=== PATIENT | female | born 1980 | race Caucasian/White ===

== ENCOUNTER 2018-03-06 15:08 | Outpatient (REF) | payer BC, SELFPAY ==
--- NOTE | 2018-03-06 15:00 | PAPFT_PTH ---
PATIENT: Mague Anthony LOC: [facility] U#:[id number] AGE/SX: 37/F ROOM: RE03/06/[address]: SANTOS Brooke : 1980 BED: DIS: 03/06/2018 SPEC #: [id number] RECD: 03/06/18 18:03 STATUS: LANG CARDOZA #: [id number] SHEILA: 03/06/18 15:[address]: Nikole Sheikh DEPT: [facility] Cytology RECD BY: Gladis Maria ENTERED: 03/06/18 18:03 SP TYPE: PAPFT BIJAN DR: None Tissues: 1 - CX/ENDOCX FOR PAP SMEARS Procedures: PAP THIN PREP/UVM Screening HPV DNA PROBE Comments: [id number]
== END 2018-03-06 15:28 ==
LOC: LBN 15:08
PROVIDERS: Visit Provider Nurse Practitioner Family
DX: Z12.4 Encounter for screening for malignant neoplasm of cervix (principal); Z11.51 Encounter for screening for human papillomavirus (HPV)
CPT/HCPCS: 88142; 87624

== ENCOUNTER 2018-03-14 00:41 | Outpatient (CLI) | payer BC, SELFPAY ==
--- NOTE | 2018-03-14 12:00 | DI.MAMMO_ITS ---
SYMPTOMS/DIAGNOSIS: SCREENING, Z12.31 MAMMOGRAM: Mammograms were interpreted according to the usual protocol including computer analysis with CAD system, tomosynthesis and C view imaging. The breasts are of moderate density with fairly symmetrical distribution of fibroglandular tissue. No dominant mass or clumped microcalcification is identified in either breast. Current examination is compared with the previous examinations including March 2016 and there is increased prominence of a focal area of asymmetric density projected in the central portion of the right breast on CC view. Additional mammographic views of this area are requested for further evaluation including CC spot compression view of the right breast. CONCLUSION: Additional mammographic views of the right breast requested as described above. Breast ultrasound may be indicated as well depending on the results of the additional mammographic views. Category 0, breast density category B. MQSA ASSESSMENT OF FINDINGS: Incomplete: Needs additional imaging evaluation. Category 0. Patient will receive a letter notifying them of these results. BI-RADS category B. There are scattered areas of fibroglandular density.
== END 2018-03-14 01:01 ==
PROVIDERS: Visit Provider Nurse Practitioner Family
DX: Z12.31 Encounter for screening mammogram for malignant neoplasm of breast (principal); R92.8 Other abnormal and inconclusive findings on diagnostic imaging of breast
CPT/HCPCS: 77063; 77067

== ENCOUNTER 2018-03-26 13:28 | Outpatient (CLI) | payer BC, SELFPAY ==
--- NOTE | 2018-03-26 14:33 | DI.MAMMO_ITS ---
SYMPTOMS/DIAGNOSIS: F/U 03/14, ASYMMETRIC DENSITY ON RT ADDITIONAL VIEWS OF THE RIGHT BREAST: Additional images are interpreted according to the usual protocol including tomosynthesis and 2D imaging. CC spot compression views with tomography was performed for a questioned asymmetry on the CC view. No persistent abnormality is seen. There has been no change when compared with 2016. IMPRESSION: Category I, negative mammogram. Yearly screening mammography is recommended. Breast density Category B. MQSA ASSESSMENT OF FINDINGS: Negative. Category 1. Patient will receive a letter notifying them of these results. BI-RADS category B. There are scattered areas of fibroglandular density.
== END 2018-03-26 13:48 ==
PROVIDERS: Visit Provider Nurse Practitioner Family
DX: Z12.31 Encounter for screening mammogram for malignant neoplasm of breast (principal); R92.8 Other abnormal and inconclusive findings on diagnostic imaging of breast; N64.59 Other signs and symptoms in breast
CPT/HCPCS: 77063; 77067

== ENCOUNTER 2020-08-07 10:06 | Outpatient (REF) | payer BC, SELFPAY ==
--- NOTE | 2020-08-07 09:00 | PAPFT_PTH ---
PATIENT: Mague Anthony LOC: [facility] U#:[id number] AGE/SX: 40/F ROOM: RE08/07/[address]: SANTOS Brooke : 1980 BED: DIS: 08/07/2020 SPEC #: [id number] RECD: 08/07/20 12:54 STATUS: LANG REQ #: [id number] SHEILA: 08/07/20 09:[address]: Nikole Sheikh DEPT: [facility] Cytology RECD BY: Gladis Maria ENTERED: 08/07/20 12:54 SP TYPE: PAPFT BIJAN DR: None Tissues: 1 - CX/ENDOCX FOR PAP SMEARS Procedures: PAP THIN PREP/UVM Screening HPV DNA PROBE Comments: [id number]
== END 2020-08-07 10:07 | disposition home or self-care (01) ==
LOC: LBN 10:06
PROVIDERS: Visit Provider Nurse Practitioner Family
DX: Z12.4 Encounter for screening for malignant neoplasm of cervix (principal); Z11.51 Encounter for screening for human papillomavirus (HPV)
CPT/HCPCS: 88142; 87624

== ENCOUNTER 2020-08-13 01:45 | Outpatient (CLI) | payer BC, SELFPAY ==
--- NOTE | 2020-08-13 10:10 | DI.MAMMO_ITS ---
EXAM: MG MAMMO SCREENING CLINICAL HISTORY: screening,Z12.39. TECHNIQUE: Bilateral full field digital CC and MLO mammographic images were obtained with 3D tomosyn thesis and utilizing computer aided detection (CAD). COMPARISON: Prior mammograms dating back to 2015, the most recent being March 2018. This patient has a sister was diagnosed with breast cancer prior to age 50. FINDINGS: There are no new spiculated masses nor malignant appearing microcalcification groups. There is no significant architectural distortion nor skin thickening-retraction. IMPRESSION: No radiographic evidence of malignancy. BI-RADS Category 1 - Negative Breast Density - Category B - Scattered areas of fibroglandular density Breast density Category C or D implies that the patient has dense breast tissue. Dense breast tissue can make it harder to find cancer on a mammogram. Dense breast tissue is also associated with an incr eased risk of breast cancer. This information about the result of the mammogram report was provided to the patient to raise their awareness. Use this report when you speak with the patient about their risks for breast cancer, which includes their family history. At that time, you may recommend additional screening tests (Ultrasoun d or MRI) as these tests may add significant information. A negative radiographic report should not delay biopsy if a dominant or clinically suspicious mass is present. Up to ten percent of cancers are not identified on mammography. A negative report may reinforce clinical impression. Adenosis and dense breasts may obscure an underlying neoplasm. False positive reports average 6 to 10%. Patient will receive a letter notifying them of these results.
== END 2020-08-13 02:05 ==
PROVIDERS: Visit Provider Nurse Practitioner Family
DX: Z12.31 Encounter for screening mammogram for malignant neoplasm of breast (principal); Z80.3 Family history of malignant neoplasm of breast
CPT/HCPCS: 77063; 77067

== ENCOUNTER 2020-08-13 03:07 | Outpatient (CLI) | payer BC, SELFPAY ==
[2020-08-13 11:06] LABS: ALT 26 U/L (14-59); AST 13 U/L (15-37)
== END 2020-08-13 03:08 | disposition home or self-care (01) ==
LOC: LBO 03:07
PROVIDERS: Visit Provider Nurse Practitioner Family
DX: E28.2 Polycystic ovarian syndrome (principal)
CPT/HCPCS: 36415; 82565; 84450; 84460

== ENCOUNTER → 2021-11-05 00:49 | Outpatient (CLI) | payer BC, SELFPAY ==
--- NOTE | 2021-11-05 08:00 | DI.MAMMO_ITS ---
Exam(s) MAMMO SCREENING EXAM: MAMMO SCREENING CLINICAL HISTORY: screening TECHNIQUE: Mammograms were interpreted according to the usual protocol including computer analysis w [employer] CAD system, tomosynthesis and C-view imaging. COMPARISON: 2015 through 2020 FINDINGS: The breasts are composed of scattered fibroglandular densities, Breast Density category B. Left breast: No suspicious masses or suspicious microcalcifications are seen. No skin thickening or abnormal axillary lymph nodes are seen. There has been no significant change from prior exams. Right breast: There is a area architectural distortion with some increased density seen in the superi or right breast. Spot compression views and ultrasound are requested for further evaluation. No ass ociated calcifications or skin thickening. No abnormal axillary lymph nodes. IMPRESSION: Left breast: BI-RADS Category 1, Negative mammogram Yearly screening mammography is recommended. Right breast: BI-RADS Cat 0 - Assessment Incomplete: Need additional imaging evaluation Breast Density - Category B, scattered fibroglandular densities. A negative radiographic report should not delay biopsy if a dominant or clinically suspicious mass is present. Up to ten percent of cancers are not identified on mammography. A negative report may reinforce clinical impression. Adenosis and dense breasts may obscure an underlying neoplasm. False positive reports average 6 to 10%. Patient will receive a letter notifying them of these results.
== END ==
PROVIDERS: Visit Provider Nurse Practitioner Family
DX: Z12.31 Encounter for screening mammogram for malignant neoplasm of breast (principal); R92.8 Other abnormal and inconclusive findings on diagnostic imaging of breast
CPT/HCPCS: 77063; 77067

== ENCOUNTER 2021-11-05 02:21 | Outpatient (CLI) | payer BC, SELFPAY ==
--- OUTSIDE RECORDS SUMMARY | 2021-11-05 02:31 | XMS_ITS | Encounter Summary ---
:1980 Author Organization [facility] Address [address] [place] [address] Care Team Providers Name Role Phone Cheryl Chacon MD Primary Care Provider Encounter Details Date Type Department Care Team Description 04/15/2016 Hospital Encounter Mammography at [facility] Cheryl Chacon Encounter for [facility] MD [place] screening mammogram Drive [address] for malignant [facility] neoplasm [place] [facility] [place] [address] [place], [place] [phone] [id number] Social History Tobacco Use Types Packs/Day Years Used Date Never Assessed Sex Assigned at Date Recorded Not on file documented as of this encounter Medications at Time of Discharge Medication Sig Dispensed Refills Start Date End Date OXYcodone-acetaminophen 1-2 Tablet(s), PO, 0 / (PERCOCET) 5-325 mg per Q4-6H,PRN tablet ibuprofen (ADVIL;MOTRIN) 600 600MG = 1 0 007 mg tablet Tablet(s), PO, Q6H,PRN norethindrone (MICRONOR) 0.35MG = 1 0 07/08/2006 0.35 mg tablet Tablet(s), PO, Once daily documented as of this encounter Plan of Treatment Not on filedocumented as of this encounter Procedures Procedure Name Priority Date/Time Associated Diagnosis Comme nts MAMMO SCREENING CAD Routine 04/15/2016 10:06 AM Encounter for Results for this AND BRENT BILATERAL EST screening mammogram pr ocedure are in for malignant the results neoplasm of breast section. documented in this encounter Results Mammo Screen CAD and Brent Bilat (Generic) (04/15/2016 10:06 AM EST) Anatomical Region Laterality Modality Breast Bilateral Mammography Specimen (Source) Anatomical Location Collection Method / Collectio n Time Received Time / Laterality Volume Narrative 04/15/2016 10:40 AM EST BILATERAL MAMMOGRAPHY REASON FOR EXAM: Screening TECHNIQUE: CC and MLO views were obtaine d of each breast using standard 2-D mammography as well as 3-D tomosynth esis. Computer aided detection was used. There are no prior images for jean almeida. FINDINGS: ??The breasts are heterogeneou sly dense, which may obscure small masses. There are no suspicious microcalcificati ons, masses, or areas of distortion. CONCLUSION: No mammographic evidence of malignancy. RECOMMENDATION: The [employer] and The Society of Breast Imaging recommend annual screenin g beginning at age 40 for the general female population. Screening leona uld continue as long as a woman is in good health and is expected to live 1 0 more years or longer. All women should be familiar with the known benefi ts, limitations, and potential harms linked to breast cancer screening. They should also know how their breasts normally look and feel and repor t any breast changes to a health care provider right away. Some women - b ecause of their family history, a genetic tendency, or certain other facto rs - should be screened with MRIs along with mammograms. (The number of wo men who fall into this category is very small.) The patient and health care provider should discuss the patient history and decide if earlier sc reening and breast MRI are appropriate. A result letter has been sent to this kylah griffiths by [facility]. BIRADS CATEGORY 1: NEGATIVE Cheryl Chacon MD IMG MAMMO ORDERABLES documented in this encounter Visit Diagnoses Diagnosis Encounter for screening mammogram for ma lignant neoplasm of breast Other screening mammogram documented in this encounter Care Teams Machine Guide Base Winder Relationship Specialty Start Date End Date Cheryl Chacon MD PCP - General Obstetrics and Gynecology 02/11/16 [address] [place] [address] documented as of this encounter
--- OUTSIDE RECORDS SUMMARY | 2021-11-05 02:31 | XMS_ITS | Encounter Summary ---
:1980 Author Organization [facility] [place] [address] Care Team Providers Name Role Phone None Primary Care Provider Unavailable Encounter Details Date Type Department Care Team Description 02/05/2016 Notes Only Hematology and Oncology at Dwight Orellana MD [facility] Nelida rudolph HEMATOLOGY/[place] [address] [place] [address] [phone] (Wo rk) Social History Tobacco Use Types Packs/Day Years Used Date Never Assessed Sex Assigned at Date Recorded Not on file documented as of this encounter Progress Notes Dwight Santana MD - 02/05/2016 8:35 AM EDT I have reviewed the patient's record and given personal and/or family history of cancer she should be seen by genetic counselor. This will be scheduled for next week. documented in this encounter Plan of Treatment Not on filedocumented as of this encounter Visit Diagnoses Not on filedocumented in this encounter Care Teams Regulatory Affairs Associate Relationship Specialty Start Date End Date None PCP - General 03/23/10 02/10/16 None documented as of this encounter
--- OUTSIDE RECORDS SUMMARY | 2021-11-05 02:31 | XMS_ITS | Clinical Summary ---
:1980 Author Organization [facility] [place] [address] Care Team Providers Name Role Phone Cheryl Chacon MD Primary Care Provider Allergies No known active allergies Medications Medication Sig Dispensed Refills Start Date End Date Status OXYcodone-acetaminophen 1-2 Tablet(s), 0 07/08/2006 Active (PERCOCET) 5-325 mg per PO, Q4-6H,PRN tablet ibuprofen (ADVIL;MOTRIN) 600MG = 1 0 07/08/2006 Active 600 mg tablet Tablet(s), PO, Q6H,PRN norethindrone (MICRONOR) 0.35MG = 1 0 07/08/2006 Active 0.35 mg tablet Tablet(s), PO, Once daily Family History Medical History Relation Comments Colorectal Cancer Maternal Grandmother Breast Cancer Paternal Aunt Cancer Paternal Grandfather Breast Cancer Sister Ovarian Cancer Sister Relation Status Comments Brother Alive Father Alive Maternal Grandfather Maternal Grandmother Alive Mother Alive Paternal Aunt Paternal Grandfather Paternal Grandmother Sister Alive Social History Tobacco Use Types Packs/Day Years Used Date Never Assessed Sex Assigned at Date Recorded Not on file Plan of Treatment Health Maintenance Due Date Last Done Comments Covid-19 Vaccine (#1) 1985 HIV screen 1998 Hepatitis C Screening 1998 Tdap adult 1999 Tetanus vaccine 1999 HPV test 2010 PAP Smear 2010 Breast Cancer Share Decision Needed 2020 Influenza (Flu) vaccine (1 of 1 - Influenza standard 12/30/2021 series) Insurance Payer Benefit Plan / Subscriber ID Effective Dates Phone Addre ss Type Group [employer] [facility] NATIONAL [id number] 2013-Maryam [phone] [address] [employer] PPO t [address] [place] [address] Care Teams Bus Person Relationship Specialty Start Date End Date Cheryl Chacon MD PCP - General Obstetrics and Gynecology 02/11/16 [address] [place], [place] [id number]
--- OUTSIDE RECORDS SUMMARY | 2021-11-05 02:31 | XMS_ITS | Encounter Summary ---
:1980 Author Organization [facility] [place] [address] Care Team Providers Name Role Phone Cheryl Chacon MD Primary Care Provider Reason for Visit Reason Comments Genetic Evaluation Family history of breast and ovarian cancer Consultation (Routine) - Specialty Diagnoses / Procedures Referred By Contact Refer red To Contact Genetics / Hematology Diagnoses 25 YO sister recently diagnosed with both breat and ovarian cancer Cheryl Chacon MD [facility] Hem Onc 3k and Oncology Procedures consultation and treat [address] [place], [place] [address] [place] [phone] Phone: Fax: Referral ID Status Reason Start Date Expiration Date Visits V isits Requested Authorized [id number] 12/22/2015 12/21/2016 1 1 Encounter Details Date Type Department Care Team Description 02/11/2016 Office Visit Hematology and Andrés Family hi story of malignant neoplasm of breast; Oncology at [facility] Chika finnegan Family history of malignant neoplasm of ovary; [facility] story of malignant neoplasm of gastrointestinal tract [place], [place] HEMATOLOGY/ONCOL [address] [facility] DEPT. [phone] [place] [address] Social History Tobacco Use Types Packs/Day Years Used Date Never Assessed Sex Assigned at Date Recorded Not on file documented as of this encounter Progress Notes Chika Ceja - 02/11/2016 9:00 AM EDT Ms. Anthony was seen by Chika Ceja MS, [facility] at the request of Cheryl Chacon MD to advise regarding possible heritable predisposition to cancer. I spent 35 minutes of this face to face encounter with the patient gathering medical and family history and discussing the likelihood of a genetic predisposition to cancer and the option of genetic testing. Reason for referral/Chief complaint Family history of breast and ovarian cancer. Medical history Cancer hx and treatment: N/A Age at 1st menses: 11 Age at 1st child: 26 Menopause status: Premenopausal Oral contraceptive use: Taken for approximately 4 years from age [age] Hormone replacement therapy use: None Current cancer screening: None reported Family History of Cancer Problem Relation Age of Onset ??? Breast Cancer Sister 24 ??? Ovarian Cancer Sister 24 ??? Colorectal Cancer Maternal Grandmother 44 ??? Cancer- NOS Paternal Grandfather 88 ??? Breast Cancer Paternal Aunt 60's Maternal ethnic background is Amharic, Kyrgyz, non-Taoist. Paternal ethnic background is Arabic Georgian, Turkish, non-Taoist. Genetic risk assessment Mague and her sister are estranged. Mague reports that her sister has told another family member that genetic testing showed that her cancer is genetic. Mague is going to attempt to get records of this genetic test result through her mother. We discussed the risks, benefits and limitations of testing Mague for her sister's mutation, if we can get that documentation. If documentation is unavailable, we discussed the option of panel testing of the genes associated with breast, ovarian and colorectal cancer for Mague directly. Mague was given a medical records release form to send to her sister. Once we receive this, we will track down any available genetic test results and recontact Mague to obtain a blood sample. Insurance pre-authorization and testing will take approximately 2-4 weeks. Mague will be contacted via telephone once her test results become available. If positive, we will schedule an in person follow-up appointment. At that time, we will discuss with Mague the implications that this test result may have for her,as well as her family members. We will also provide Mague with screening guidelines for cancer prevention and early detection, as well as answer any questions she may have. Screening Recommendations If Mague were not to undergo any genetic testing, we recommend: Breast cancer screening ?? Monthly self breast exams and annual clinical breast exams ?? Annual mammograms starting now In addition, Mague may consider annual breast MRI screening, specifically if she has dense breast tissue on mammography. Ideally, this should be performed at a facility that has breast MRI directed biopsy capability such as the [facility] Radiology Department. Mague's health care providers may contact the [facility] Radiology Department at [phone] in order to schedule this study for her in the future. ?? Tamoxifen or Raloxifene has been shown to reduce the risk of breast cancer in women at increased risk. Tamoxifen, if used for approximately 5 years, reduces ones risk by about half (50%). This option could be further discussed with Mague???s health care provider in the future. Ovarian cancer screening ?? We do not recommend any special screening studies in addition to an annual STUDIO POTTER exam at this time. ?? Bilateral salpingo oophorectomy may be recommended, based on genetic test results. Other cancer screening ?? Colonoscopy screening starting at age 50, then every 5-10 years or sooner based on colonoscopy findings ?? Annual dermatologic exams We will readdress the issue of screening upon the receipt of Mague???s genetic test result. documented in this encounter Plan of Treatment Not on filedocumented as of this encounter Visit Diagnoses Diagnosis Family history of malignant neoplasm of breast Family history of malignant neoplasm of ovary Family history of malignant neoplasm of gastrointestinal tract documented in this encounter Care Teams Intermediate Designer Relationship Specialty Start Date End Date Cheryl Chacon MD PCP - General Obstetrics and Gynecology 02/11/16 [address] [place] [address] documented as of this encounter
--- OUTSIDE RECORDS SUMMARY | 2021-11-05 02:32 | XMS_ITS | Encounter Summary ---
:1980 Author Organization [facility] Address [address] [place] [address] Care Team Providers Name Role Phone Cheryl Chacon MD Primary Care Provider Unavailable Encounter Details Date Type Department Care Team Description 05/10/2017 Hospital Encounter [facility] [place], [facility] [phone] [place] [address] (Work) [phone] Social History Tobacco Use Types Packs/Day Years Used Date Never Assessed Sex Assigned at Date Recorded Not on file documented as of this encounter Discharge Disposition Disposition Code Departure Means Destination Home or Self [facility] documented in this encounter Plan of Treatment Not on filedocumented as of this encounter Visit Diagnoses Not on filedocumented in this encounter Care Teams Packager Machine Relationship Specialty Start Date End Date Cheryl Chacon MD PCP - General 01/25/16 05/11/17 documented as of this encounter
--- OUTSIDE RECORDS SUMMARY | 2021-11-05 02:32 | XMS_ITS | Encounter Summary ---
:1980 Author Organization [facility] Address [address] [place] [address] Care Team Providers Name Role Phone Nestor Chacon MD Primary Care Provider Unavailable Encounter Details Date Type Department Care Team Description 05/10/2017 Results Only [facility] Nestor Chacon MD [phone] [place] [address] Social History Tobacco Use Types Packs/Day Years Used Date Never Assessed Sex Assigned at Date Recorded Not on file documented as of this encounter Plan of Treatment Not on filedocumented as of this encounter Procedures Procedure Name Priority Date/Time Associated Diagnosis Comme nts SURGICAL PATHOLOGY Routine 05/10/2017 16:00 Resul ts for this EST procedure are i n the results section. documented in this encounter Results SURGICAL PATHOLOGY (05/10/2017 16:00 EST) Pathology Report: SURGICAL PATHOLOGY REPORT [facility] Reports generated via electronic interface contain dilcia ginal data; LABORATORY however they are lacking the format of the original re port. SERVICES Caution should be taken when reading/interpreting unfo rmatted reports. Name: ? SANDIP BRIAN ? Accession #: ? [id number] ? : ? 1980 (Age: 3 6) ??F ? Collect Date: ? 05/10/2017 ? Location: ? [facility] ? Receive Date: ? 05/10/19 18 ? Provider: NESTOR CHACON MD Copy to: ? Final Pathologic Diagnosis: ENDOMETRIUM, CURETTAGE: - ??Inactive endometrium. - ??Benign squamous and endocervical mucosa. Document reviewed and electronically signed by: MALENA AWAN MD Report ??Date: 05/15/2017 17:34 By the signature above, the attending physician certif ies that he/she has personally conducted a gross and/or microscopic examin ation of the described specimens and rendered or confirmed the above diagnosi s. Specimen(s) Received: Endometrial curettings Clinical History: Menorrhagia; failed medical management Gross Description: ? Received in formalin labelled with proper patient identification (initials F, B) and curettings is abrams-emerson soft tissue admixed with blood clot and mucus, measuring 2.5 x 2.5 x 1.2 cm in aggregate. Enti rely submitted in 1-4. NAOMIE Erwin (ASCP) 05/10/2017 4:44 PM End of Report Specimen Performing Organization Address City/State/ZIP Code Phon e Number [facility] [address] [place] [address] SERVICES documented in this encounter Visit Diagnoses Not on filedocumented in this encounter Care Teams Floorworker Distributor Relationship Specialty Start Date End Date Nestor Chacon MD PCP - General 01/25/16 05/11/17 documented as of this encounter
--- OUTSIDE RECORDS SUMMARY | 2021-11-05 02:32 | XMS_ITS | Clinical Summary ---
:1980 Author Organization [facility] Address [address] [place] [address] Care Team Providers Name Role Phone None, Provider Primary Care Provider Unavailable Social History Tobacco Use Types Packs/Day Years Used Date Never Assessed Sex Assigned at Date Recorded Not on file Plan of Treatment Not on file Care Teams Manager Rn Case Relationship Specialty Start Date End Date None, Provider PCP - General 05/12/17
--- OUTSIDE RECORDS SUMMARY | 2021-11-05 02:32 | XMS_ITS | Encounter Summary ---
:1980 Author Organization [facility] Address [address] [place] [address] Care Team Providers Name Role Phone None, Provider Primary Care Provider Unavailable Encounter Details Date Type Department Care Team Description 08/10/2020 Lab Requisition [facility] Nikole Sheikh E ncounter for other Pathology & SAP BI DEVELOPER general examination Laboratory Medicine [address] [place], [place] [address] [facility] [id number] [place] [address] Social History Tobacco Use Types Packs/Day Years Used Date Never Assessed Sex Assigned at Date Recorded Not on file documented as of this encounter Plan of Treatment Not on filedocumented as of this encounter Procedures Procedure Name Priority Date/Time Associated Comments Diagnosis PAP TEST Today 08/07/2020 9:00 Encounter for other Resul ts for this EDT general examination procedur e are in the results section. HUMAN PAPILLOMAVIRUS Today 08/07/2020 9:00 Encounter for oth er Results for this (HPV) DETECTION-HIGH EDT general examination procedure are in RISK TYPES the results section. documented in this encounter Results HUMAN PAPILLOMAVIRUS (HPV) DETECTION-HIGH RISK TYPES (08/07/2020 9:00 EDT) Human Papillomavirus NegativeComment: No Negative [facility] (HPV) Detection-High E6 or E7 mRNA is CENTER LABORATOR Y Types detected from HPV SERVICES types 16,18,31,33,35,39,45 ,51,52,56,58,59,66, and 68 by chilling hood operator mediated amplification. Specimen Pap Test - Cervix and/or Endocervix Performing Organization Address City/State/ZIP Code Phon e Number [facility] [address] [place] [address] SERVICES PAP TEST (08/07/2020 9:00 EDT) Specimens A. Cervix and/or [facility] Endocervix , ThinPrep CENTER Imaging System with LABORATORY Manual Evaluation SERVICES Specimen Adequacy Satisfactory for [facility] Evaluation - CENTER transformation zone LABORATORY component present SERVICES General Negative for [facility] intraepithelial MANNING lesion or malignancy LABORATORY SERVICES Attestation . [facility] Electronically CENTER signed by SOHAIL Olguin CT(ASCP) o n SERVICES 08/14/2020 at 16 13 Clinical History See below [facility] SERVICES HPV The result for the Human Pap illomavirus (HPV) Detection-High Risk Types is Negative. No E6 or E7 mRNA is detected from HPV types 16,18,31,33,35,39,45,51,52,56,58,59,66, and 68 by chilling hood operator mediated [facility] amplification.Testing was pe rformed on specimen [id number] and was resulted on 08/14/2020 1607 EDT by JEFFRY, LAB INSTRUMENT RESULTS IN [facility] SERVICES Performing Lab [facility] SERVICES Scanned Images [facility] SERVICES Specimen Pap Test - Cervix and/or Endocervix Performing Organization Address City/State/ZIP Code Phon e Number [facility] [address] [place] [address] SERVICES documented in this encounter Visit Diagnoses Diagnosis Encounter for other general examination documented in this encounter Care Teams Blueprint Reproducer Relationship Specialty Start Date End Date None, Provider PCP - General 05/12/17 documented as of this encounter
--- OUTSIDE RECORDS SUMMARY | 2021-11-05 02:32 | XMS_ITS | Encounter Summary ---
:1980 Author Organization [facility] Address [address] [place] [address] Care Team Providers Name Role Phone Unavailable Primary Care Provider Unavailable Encounter Details Date Type Department Care Team Description 01/18/2010 Results Only [facility] Marlyn Acevedo, [place] Laboratory Services - [place], [place] [address] [facility] [id number] [place] [id number] [phone] Social History Tobacco Use Types Packs/Day Years Used Date Never Assessed Sex Assigned at Date Recorded Not on file documented as of this encounter Plan of Treatment Not on filedocumented as of this encounter Procedures Procedure Name Priority Date/Time Associated Diagnosis Comme nts CYTOPATHOLOGY Routine 01/18/2010 0:00 EDT Results for this procedure are i n the results section . documented in this encounter Results CYTOPATHOLOGY (01/18/2010 0:00 EDT) Pathology Report: CYTOPATHOLOGY REPORT ? [facility] ? LAB Reports generated via electr [employer] interface contain original data; ? however they are lacking the format of the original report. ? Caution should be taken when reading/interpreting unformatted reports. ? Name: ? SANDIP BRIAN ? Accession #: ? [id number] ? : ? 1980 (Age: 29) ??F ?Collect Date: ? 01/18/2010 ? Location: ? [facility] ? Receive Date: ? 01/19/2010 ? Provider: ?LISA HANEY CNM ? Copy to: ? Specimen/Source: ? Pap Test, Cervix/Endocervix, ThinPrep Imaging System ? with manual evaluation ? Last Menstrual Period: ? 01/06/2010 ? Other: ? HPVA - HPV testing requested if ASC-US on the current ThinPrep Pap test. ? SPECIMEN ADEQUACY ? Satisfactory for Eval uation ? - transformation zone compon ent present ? GENERAL CATEGORIZATION ? Negative for Intraepi thelial Lesion or Malignancy ? Document reviewed and electr onically signed by: ? Sarika Coreas, CT(ASCP) ? Report Date: ??09/21/ 2010 15:44 ? End of Report ? Specimen Performing Organization Address City/State/ZIP Code Phon e Number [facility] [address] [place] [address] SERVICES [facility] [address] [place] [address] documented in this encounter Visit Diagnoses Not on filedocumented in this encounter
--- OUTSIDE RECORDS SUMMARY | 2021-11-05 02:32 | XMS_ITS | Encounter Summary ---
:1980 Author Organization [facility] Address [address] [place] [address] Care Team Providers Name Role Phone Unknown, Provider Primary Care Provider Encounter Details Date Type Department Care Team Description 01/30/2012 Results Only [facility] Jada Solitario MD Laboratory Services - [address] [facility] [address] [place] [phone] (Wo rk) Social History Tobacco Use Types Packs/Day Years Used Date Never Assessed Sex Assigned at Date Recorded Not on file documented as of this encounter Plan of Treatment Not on filedocumented as of this encounter Procedures Procedure Name Priority Date/Time Associated Diagnosis Comme nts PAP TEST- RESULT Routine 01/30/2012 0:00 EDT Resu lts for this ONLY procedure are i n the results section. documented in this encounter Results PAP TEST- RESULT ONLY (01/30/2012 0:00 EDT) Pathology Report: CYTOPATHOLOGY REPORT [facility] Reports generated via electronic interface contain dilcia ginal data; however they are lacking the format of the original re port. Caution should be taken when reading/interpreting unfo rmatted reports. Name: ? SANDIP BRIAN ? Accession #: ? [id number] : ? 1980 (Age: 31) ??F ?Collect Date: ? 1005/2011 Location: ? [facility] ? Receive Date : ? 02/01/2012 Provider: ?JAIME SOLITARIO MD Copy to: ? Specimen/Source: ? Pap Test, Cervix/Endocervix, ThinPrep Imaging System with manual evaluation Last Menstrual Period: ? 11/22/2011 Hormonal/Contraceptive Status: ? Progesterone: ORAL ? SPECIMEN ADEQUACY ? Satisfactory for Evaluation - transformation zone component present GENERAL CATEGORIZATION ? Negative for Intraepithelial Lesion or Malignan cy ? Document reviewed and electronically signed by: ? JG eRyes(ASCP) ? Report Date: ??02/07/2012 13:24 End of Report Specimen Performing Organization Address City/State/ZIP Code Phon e Number [facility] [address] [place] [address] SERVICES [facility] [address] [place] [address] documented in this encounter Visit Diagnoses Not on filedocumented in this encounter Care Teams Attractions Associate Relationship Specialty Start Date End Date Unknown, Provider, PCP - General 05/18/10 01/24/16 documented as of this encounter
--- OUTSIDE RECORDS SUMMARY | 2021-11-05 02:32 | XMS_ITS | Encounter Summary ---
:1980 Author Organization [facility] Address [address] [place] [address] Care Team Providers Name Role Phone Unknown, Provider Primary Care Provider Encounter Details Date Type Department Care Team Description 02/12/2015 Results Only [facility]- PRISM Nestor Chacon MD [phone] [place] [address] Social History Tobacco Use Types Packs/Day Years Used Date Never Assessed Sex Assigned at Date Recorded Not on file documented as of this encounter Plan of Treatment Not on filedocumented as of this encounter Procedures Procedure Name Priority Date/Time Associated Diagnosis Comme nts PAP TEST- RESULT Routine 02/12/2015 0:00 EDT Resu lts for this ONLY procedure are i n the results section. documented in this encounter Results PAP TEST- RESULT ONLY (02/12/2015 0:00 EDT) Pathology Report: CYTOPATHOLOGY REPORT [facility] Reports generated via electronic interface contain dilcia ginal data; SERVICES however they are lacking the format of the original re port. Caution should be taken when reading/interpreting unfo rmatted reports. Name: ? SANDIP BRIAN ? Accession #: ? [id number] ? : ? 1980 (Age: [age]) ??F ?Collect Da te: ? 02/12/2015 ? Location: ? [facility] ? Receive Date: ? 015 ? Provider: NESTOR CHACON MD Copy to: ? Final Report SPECIMEN ADEQUACY ? Satisfactory for Evaluation - transformation zone component present GENERAL CATEGORIZATION ? Negative for Intraepithelial Lesion or Malignan cy ?? Specimen/Source: ??Pap Test, Cervix/Endocervix, ThinPr ep Imaging System with manual evaluation Document reviewed and electronically signed by: ? Sarika Coreas, CT(ASCP) ? Report ??Date: 02/17/2015 10:42 HPV with Pap Test ? Date Ordered: ? 02/17/2015 ? Status: ?? Signed Out ?Date Complete: ? 02/19/2015 ? By: ??S ystem Interface ? Date Reported: ? 02/19/2015 ? Interpretation RESULT: Negative for HPV. No E6 or E7 mRNA is detected from HPV types 16,18,31,3 3,35, 39,45,51,52,56,58,59,66, and 68 by real estate firm manager media shannon amplification. Comments Document reviewed and electronically signed by: ? System Interface ? Report date: 02/19/2015 By the signature above, the attending physician certif ies that he/she has personally conducted a gross and/or microscopic examin ation of the described specimens and rendered or confirmed the above diagnosi s. End of Report Specimen Performing Organization Address City/State/ZIP Code Phon e Number [facility] [address] [place] [address] SERVICES documented in this encounter Visit Diagnoses Not on filedocumented in this encounter Care Teams Grader Tender Relationship Specialty Start Date End Date Unknown, Provider, PCP - General 05/18/10 01/24/16 documented as of this encounter
--- OUTSIDE RECORDS SUMMARY | 2021-11-05 02:32 | XMS_ITS | Encounter Summary ---
:1980 Author Organization [facility] Address [address] [place] [address] Care Team Providers Name Role Phone Unknown, Provider Primary Care Provider Encounter Details Date Type Department Care Team Description 01/31/2013 Results Only [facility]- PRISM Nestor Chacon MD [phone] [place] [address] Social History Tobacco Use Types Packs/Day Years Used Date Never Assessed Sex Assigned at Date Recorded Not on file documented as of this encounter Plan of Treatment Not on filedocumented as of this encounter Procedures Procedure Name Priority Date/Time Associated Diagnosis Comme nts PAP TEST- RESULT Routine 01/31/2013 0:00 EDT Resu lts for this ONLY procedure are i n the results section. documented in this encounter Results PAP TEST- RESULT ONLY (01/31/2013 0:00 EDT) Pathology Report: CYTOPATHOLOGY REPORT [facility] Reports generated via electronic interface contain dilcia ginal data; however they are lacking the format of the original re port. Caution should be taken when reading/interpreting unfo rmatted reports. Name: ? SANDIP BRIAN ? Accession #: ? [id number] ? : ? 1980 (Age: 32) ??F ?Collect Da te: ? 01/31/2013 ? Location: ? [facility] ? Receive Date: ? 013 ? Provider: NESTOR CHACON MD Copy to: ? Final Report SPECIMEN ADEQUACY ? Satisfactory for Evaluation - transformation zone component present GENERAL CATEGORIZATION ? Negative for Intraepithelial Lesion or Malignan cy ?? Specimen/Source: ??Pap Test, Cervix/Endocervix, ThinPr ep Imaging System with manual evaluation Document reviewed and electronically signed by: ? JG Shaikh(ASCP) ? Report ??Date: 02/06/2013 10:40 HPV with Pap Test ? Date Ordered: ? 02/06/2013 ? Status: ?? Signed Out ?Date Complete: ? 02/08/2013 ? By: ??S ystem Interface ? Date Reported: ? 02/08/2013 ? Interpretation RESULT: Negative for HPV. No E6 or E7 mRNA is detected from HPV types 16,18,31,3 3,35, 39,45,51,52,56,58,59,66, and 68 by software verification engineer media shannon amplification. Comments Document reviewed and electronically signed by: ? System Interface ? Report date: 02/08/2013 By the signature above, the attending physician certif ies that he/she has personally conducted a gross and/or microscopic examin ation of the described specimens and rendered or confirmed the above diagnosi s. End of Report Specimen Performing Organization Address City/State/ZIP Code Phon e Number [facility] [address] [place] [address] SERVICES [facility] [address] [place] [address] documented in this encounter Visit Diagnoses Not on filedocumented in this encounter Care Teams Steam Conditioner Operator Relationship Specialty Start Date End Date Unknown, Provider, PCP - General 05/18/10 01/24/16 documented as of this encounter
--- OUTSIDE RECORDS SUMMARY | 2021-11-05 02:32 | XMS_ITS | Encounter Summary ---
:1980 Author Organization [facility] Address [address] [place] [address] Care Team Providers Name Role Phone Unavailable Primary Care Provider Unavailable Encounter Details Date Type Department Care Team Description 05/14/2010 Results Only [facility] Tawanna Palencia MD Laboratory Services - [address] [place] [address] [place] [address] Social History Tobacco Use Types Packs/Day Years Used Date Never Assessed Sex Assigned at Date Recorded Not on file documented as of this encounter Plan of Treatment Not on filedocumented as of this encounter Procedures Procedure Name Priority Date/Time Associated Diagnosis Comme nts SURGICAL PATHOLOGY Routine 05/14/2010 0:00 EST Re sults for this procedure are i n the results section. documented in this encounter Results SURGICAL PATHOLOGY (05/14/2010 0:00 EST) Pathology Report: SURGICAL PATHOLOGY REPORT ? [facility] Reports generated via [employer] interface contain original data; ? LAB however they are lacking the format of the original report. ? Caution should be taken when reading/interpreting unformatted reports. ? Name: ? ROC, SANDIP ? Accession #: ? [id number] ? : ? 1980 (Age: 29) ??F ? Collec t Date: ? 05/14/2010 ? Location: ? [facility] ? R eceive Date: ? 05/14/2010 ? Provider: TAWANNA CARMEN MD ? Copy to: ? Final Pathologic Diagnosis: ? Endometrium, biopsy: ? - Disordered proliferative e ndometrium. ??See comment. ? Comment: ? Java Android Developer sectio ns of this case have been reviewed at ? intradepartmental consultati on conference. ??(Dr. Donovan). ? Document reviewed and electr onically signed by: ? MOUNA CIAMPA MD ? Report ??Date: 05/18/2010 15 :15 ? By the signature above, the attending physician certifies that he/she has ? personally conducted a gross and/or microscopic examination of the described ? specimens and rendered or co nfirmed the above diagnosis. ? Specimen(s) Received: ? Endometrial bx ? Clinical History: ? Oligomenorrhea; (-) p regnancy test; control vasectomy; LMP: 9//10 ? Gross Description: ? Received in formalin labelled Sandip Anthony and endo bx are 2.5 x 2.0 x 0.4 cm of abrams-brown hemorr hagic irregular soft tissue fragments. ??The specimen is entirely submitted as (A1 ) and (A2) following filtration. ??(Ramiro Nielsen)/mms ? End of Report ? Specimen Performing Organization Address City/State/ZIP Code Phon e Number [facility] [address] [place] [address] SERVICES [facility] [address] [place] [address] documented in this encounter Visit Diagnoses Not on filedocumented in this encounter
--- OUTSIDE RECORDS SUMMARY | 2021-11-05 02:32 | XMS_ITS | Encounter Summary ---
:1980 Author Organization [facility] Address [address] [place] [address] Care Team Providers Name Role Phone Unavailable Primary Care Provider Unavailable Encounter Details Date Type Department Care Team Description 01/19/2006 Results Only [facility] - Shyanne Alvarenga CNM [facility] [address] [place] [phone] Social History Tobacco Use Types Packs/Day Years Used Date Never Assessed Sex Assigned at Date Recorded Not on file documented as of this encounter Plan of Treatment Not on filedocumented as of this encounter Procedures Procedure Name Priority Date/Time Associated Diagnosis Comme nts CYTOPATHOLOGY Routine 01/19/2006 0:00 EDT Results for this procedure are i n the results section . documented in this encounter Results CYTOPATHOLOGY (01/19/2006 0:00 EDT) Pathology Report: CYTOPATHOLOGY REPORT [facility] Reports generated via electronic interface contain dilcia ginal data; however they are lacking the format of the original re port. Caution should be taken when reading/interpreting unfo rmatted reports. Name: ? SANDIP BRIAN ? Accession #: ? [id number] : ? 1980 (Age: 25) ??F ?Collect Date: ? 12/31 Location: ? [facility] ? Receive Date : ? 01/20/2006 Provider: ?SHYANNE CHANDLER M Copy to: ? Specimen/Source: ? ThinPrep Pap Test, Cervix/Endocervix, processed on [employer] ThinPrep Imaging System, with manual evaluation Last Menstrual Period: ? 11/28/05 Menstrual/ Status: ? Other: ? HPVA - HPV testing requested if ASC-US on the current ThinPrep Pap test. ? SPECIMEN ADEQUACY ? Satisfactory for Evaluation - transformation zone component present GENERAL CATEGORIZATION ? Negative for Intraepithelial Lesion or Malignan cy ? Document reviewed and electronically signed by: ? Shyanne Evans, [facility](ASCP) ? Report Date: ??01/25/2006 08:57 End of Report Specimen Performing Organization Address City/State/ZIP Code Phon e Number [facility] [address] [place] [address] SERVICES [facility] [address] [place] [address] documented in this encounter Visit Diagnoses Not on filedocumented in this encounter
--- OUTSIDE RECORDS SUMMARY | 2021-11-05 02:32 | XMS_ITS | Encounter Summary ---
:[address] [facility] Address [address] [place] [address] Care Team Providers Name Role Phone Unavailable Primary Care Provider Unavailable Encounter Details Date Type Department Care Team Description 02/26/2008 Before PRISM Converted [facility] - Paz Acevedo, Visit (Maple) Maple conversion CN [address] [place], [place] [id number] [place] [address] Social History Tobacco Use Types Packs/Day Years Used Date Never Assessed Sex Assigned at Date Recorded Not on file documented as of this encounter Plan of Treatment Not on filedocumented as of this encounter Procedures Procedure Name Priority Date/Time Associated Diagnosis Comme nts CYTOPATHOLOGY Routine 02/26/2008 0:00 EDT Results for this procedure are i n the results section . documented in this encounter Results CYTOPATHOLOGY (02/26/2008 0:00 EDT) Pathology Report: CYTOPATHOLOGY REPORT ? [facility] ? LAB Reports generated via electr [employer] interface contain original data; ? however they are lacking the format of the original report. ? Caution should be taken when reading/interpreting unformatted reports. ? Name: ? SANDIP BRIAN ? Accession #: ? [id number] ? : ? 1980 (Age: 27) ??F ?Collect Date: ? 02/26/2008 ? Location: ? [facility] ? Receive Date: ? 02/27/2008 ? Provider: ?LISA HANEY CNM ? Copy to: ? Specimen/Source: ? Pap Test, Cervix/Endocervix, ThinPrep Imaging System ? with manual evaluation ? Last Menstrual Period: ? 10/13/08 ? Hormonal/Contraceptive Statu s: ? Oral contraceptives ? Other: ? HPVA - HPV testing requested if ASC-US on the current ThinPrep Pap test. ? SPECIMEN ADEQUACY ? Satisfactory for Eval uation ? - transformation zone compon ent present ? GENERAL CATEGORIZATION ? Negative for Intraepi thelial Lesion or Malignancy ? Document reviewed and electr onically signed by: ? Regine Verville,CT(ASCP) ? Report Date: ??10/31/ 2008 12:43 ? End of Report ? Specimen Performing Organization Address City/State/ZIP Code Phon e Number [facility] [address] [place] [address] SERVICES [facility] [address] [place] [address] documented in this encounter Visit Diagnoses Not on filedocumented in this encounter
--- OUTSIDE RECORDS SUMMARY | 2021-11-05 02:32 | XMS_ITS | Encounter Summary ---
:[address] [facility] Address [address] [place] [address] Care Team Providers Name Role Phone Unknown, Provider Primary Care Provider Encounter Details Date Type Department Care Team Description 01/19/2016 Results Only [facility]- PRISM Nestor Chacon MD [phone] [place] [address] Social History Tobacco Use Types Packs/Day Years Used Date Never Assessed Sex Assigned at Date Recorded Not on file documented as of this encounter Plan of Treatment Not on filedocumented as of this encounter Procedures Procedure Name Priority Date/Time Associated Diagnosis Comme nts SURGICAL PATHOLOGY Routine 01/19/2016 20:46 Resul ts for this EDT procedure are i n the results section. documented in this encounter Results SURGICAL PATHOLOGY (01/19/2016 20:46 EDT) Pathology SURGICAL PATHOLOGY REPORT [facility] Report: Reports generated via electronic interface conta in original data; CENTER LABORATORY however they are lacking the format of the original re port. SERVICES Caution should be taken when reading/interpreting unfo rmatted reports. Name: ? SANDIP BRIAN ? Accession #: ? [id number] ? : ? 1980 (Age: [age]) ??F ? Collect Date: ? 01/19/2016 ? Location: ? [facility] ? Receive Date: ? 01/20/20 16 ? Provider: NESTOR CHACON MD Copy to: ? 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 - No cytologic atypia. Comment: Instructor Physical Education slides of this case were reviewed at [facility] intradepartmental consultation conference. Dr. Richards 01/22/2016 11:24 AM Document reviewed and electronically signed by: SHAMEKA RICHARDS MD Report ??Date: 01/22/2016 15:38 By the signature above, the attending physician certif ies that he/she has personally conducted a gross and/or microscopic examin ation of the described specimens and rendered or confirmed the above diagnosi s. Specimen(s) Received: EM biopsy Clinical History: Irregular bleeding, despite norethindron e acetate daily; thickened EMS 17.2 mm Gross Description: ? Received in formalin labelled with proper patient identification (initials F, B) and endometrial bx is an aggregate of abrams-brow n tissue fragments and clotted blood (2.5 x 2.0 x 0.5 cm). Submitted in toto in blocks 1-4. NAOMIE Hi (ASCP) 01/21/2016 8:41 AM End of Report Specimen Performing Organization Address City/State/ZIP Code Phon e Number [facility] [address] [place] [address] SERVICES documented in this encounter Visit Diagnoses Not on filedocumented in this encounter Care Teams Rn Occupational Health Relationship Specialty Start Date End Date Unknown, Provider, PCP - General 05/18/10 01/24/16 documented as of this encounter
[2021-11-05 09:40] LABS: ALT 28 U/L (14-59); AST 15 U/L (15-37); CREATININE 1.1 mg/dL (0.55-1.02); Estimated GFR 54.74 (mL/min/1.73m2)
== END 2021-11-05 02:22 | disposition home or self-care (01) ==
LOC: LBO 02:21
PROVIDERS: Visit Provider Nurse Practitioner Family
DX: E28.2 Polycystic ovarian syndrome (principal)
CPT/HCPCS: 36415; 82565; 84450; 84460

== ENCOUNTER → 2021-11-12 00:36 | Outpatient (CLI) | payer BC, SELFPAY ==
--- NOTE | 2021-11-12 | DI.US_ITS ---
Exam(s) MG MAMMO SCREEN CALL BACK UNI US BREAST RT LIMITED EXAM: MG MAMMO SCREEN CALL BACK UNI and U/S breast RT limited CLINICAL HISTORY: INCREASED DENSITY RIGHT BREAST. TECHNIQUE: Craniocaudal and mediolateral oblique Full Field Digital Mammography views of the right b reast with Computer Aided Diagnosis followed by Tomosynthesis and right breast ultrasound. COMPARISON: Comparison with prior examinations. FINDINGS: Mammography/Tomosynthesis: Masses/Architectural Distortion: The additional views fail to show persistent discrete mass. Microcalcifictions: No suspicious pleomorphic-type are seen. Skin Thickening/Nipple Retraction: None. Limited right breast US: Echotexture: Normal appearance of the glandular tissue. Shadowing: No suspicious foci. Cyst: None. Solid lesions: None seen. Ductal dilation: None. IMPRESSION: 1. No evidence of malignancy is noted. 2. A 3 month follow-up right mammogram is recommended for re-evaluation. 3. The findings were discussed with the patient on the date of the examination. BI-RADS Category 3 - Probably Benign Finding: Recommend follow-up imaging in 3 months Breast Density - Category B - Scattered areas of fibroglandular density Breast density Category C or D implies that the patient has dense breast tissue. Dense breast tissue can make it harder to find cancer on a mammogram. Dense breast tissue is also associated with an incr eased risk of breast cancer. This information about the result of the mammogram report was provided to the patient to raise their awareness. Use this report when you speak with the patient about their risks for breast cancer, which includes their family history. At that time, you may recommend additional screening tests (Ultrasoun d or MRI) as these tests may add significant information. A negative radiographic report should not delay biopsy if a dominant or clinically suspicious mass is present. Up to ten percent of cancers are not identified on mammography. A negative report may reinforce clinical impression. Adenosis and dense breasts may obscure an underlying neoplasm. False positive reports average 6 to 10%. Patient will receive a letter notifying them of these results.
--- OUTSIDE RECORDS SUMMARY | 2021-11-12 00:43 | XMS_ITS | Encounter Summary ---
:1980 Author Organization [facility] Address [address] [place] [address] Care Team Providers Name Role Phone Unavailable Primary Care Provider Unavailable Encounter Details Date Type Department Care Team Description 02/26/2008 Before PRISM Converted [facility] - Paz Acevedo, Visit (Maple) Maple conversion CN [address] [place], [place] [address] [place] [address] Social History Tobacco Use Types Packs/Day Years [...] EN ? LAB Reports generated via electr [employer] interface contain original data; ? however they are lacking the format of the original report. ? Caution should be taken when reading/interpreting unformatted reports. ? Name: ? SANDIP BRIAN ? Accession #: ? [id number] ? : ? 1980 (Age: 27) ??F [...] Organization Address City/State/ZIP Code Phon e Number [facility] [address] [place] [address] SERVICES [facility] [address] [place] [address] documented in this encounter Visit Diagnoses Not on filedocumented in this encounter
--- OUTSIDE RECORDS SUMMARY | 2021-11-12 00:43 | XMS_ITS | Encounter Summary ---
:1980 Author Organization [facility] [place] [address] Care Team Providers Name Role Phone None Primary Care Provider Unavailable Encounter Details Date Type Department Care Team Description 02/05/2016 Notes Only Hematology and Oncology at Dwight Orellana MD [facility] Nelida rudolph HEMATOLOGY/[place] [address] [place] [address] [phone] (Wo rk) Social History Tobacco Use Types [...] on filedocumented in this encounter Care Teams Ent Surgeon Relationship Specialty Start Date End Date None PCP - General 03/23/10 02/10/16 None documented as of this encounter
--- OUTSIDE RECORDS SUMMARY | 2021-11-12 00:43 | XMS_ITS | Encounter Summary ---
:1980 Author Organization [facility] Address [address] [place] [address] Care Team Providers Name Role Phone Unknown, Provider Primary Care Provider Encounter Details Date Type Department Care Team Description 01/31/[address] [facility]- PRISM Nestor Chacon MD [phone] [place] [address] Social History Tobacco Use Types Packs/Day Years [...] ? SANDIP BRIAN ? Accession #: ? [id number] ? : ? 1980 (Age: 32) ??F [...] types 16,18,31,3 3,35, 39,45,51,52,56,58,59,66, and 68 by acetylene cutter media shannon amplification. Comments Document reviewed and [...] e Number [facility] [address] [place] [address] SERVICES [facility] [address] [place] [address] documented in this encounter Visit Diagnoses Not on filedocumented in this encounter Care Teams Gamemaster Relationship Specialty Start Date End Date Unknown, Provider, PCP - General 05/18/10 01/24/16 documented as of this encounter
--- OUTSIDE RECORDS SUMMARY | 2021-11-12 00:43 | XMS_ITS | Encounter Summary ---
:1980 Author Organization [facility] Address [address] [place] [address] Care Team Providers Name Role Phone Unknown, Provider Primary Care Provider Encounter Details Date Type Department Care Team Description 01/19/2016 Results Only [facility]- PRISM Nestor Chacon MD [phone] [place] [address] Social History Tobacco Use Types Packs/Day Years [...] (01/19/2016 20:46 EDT) Pathology SURGICAL PATHOLOGY REPORT [facility] MEDICAL Report: Reports generated via electronic interface conta in original data; CENTER LABORATORY however they are lacking the format of the original re port. SERVICES Caution should be taken when reading/interpreting unfo rmatted reports. Name: ? SANDIP BRIAN ? Accession #: ? [id number] ? : ? 1980 (Age: [age]) ??F ? Collect Date: ? 01/19/2016 ? Location: ? [facility] ? Receive Date: ? 01/20/20 16 ? Provider: NESTOR CHACON MD Copy to: ? 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 - No cytologic atypia. Comment: Director [employer] slides of this case were reviewed at [facility] intradepartmental consultation conference. Dr. Richards 01/22/2016 11:24 [...] City/State/ZIP Code Phon e Number [facility] [address] [place] [address] SERVICES documented in this encounter Visit Diagnoses Not on filedocumented in this encounter Care Teams Repair Supervisor Relationship Specialty Start Date End Date Unknown, Provider, PCP - General 05/18/10 01/24/16 documented as of this encounter
--- OUTSIDE RECORDS SUMMARY | 2021-11-12 00:43 | XMS_ITS | Encounter Summary ---
:1980 Author Organization [facility] Address [address] [place] [address] Care Team Providers Name Role Phone Nestor Chacon MD Primary Care Provider Unavailable Encounter Details Date Type Department Care Team Description 05/10/2017 Results Only [facility]- PRISM Nestor Chacon MD [phone] [place] [address] Social History Tobacco Use Types Packs/Day Years [...] 16:00 EST) Pathology Report: SURGICAL PATHOLOGY REPORT [facility] Reports generated via electronic interface contain dilcia ginal data; LABORATORY however they are lacking the format of the original re port. SERVICES Caution should be taken when reading/interpreting unfo rmatted reports. Name: ? SANDIP BRIAN ? Accession #: ? [id number] ? : ? 1980 (Age: 3 6) [...] Organization Address City/State/ZIP Code Phon e Number [facility] [address] [place] [address] SERVICES documented in this encounter Visit Diagnoses Not on filedocumented in this encounter Care Teams Feed In Worker Relationship Specialty Start Date End Date Nestor Chacon MD PCP - General 01/25/16 05/11/17 documented as of this encounter
--- OUTSIDE RECORDS SUMMARY | 2021-11-12 00:43 | XMS_ITS | Encounter Summary ---
:1980 Author Organization [facility] [place] [address] Care Team Providers Name Role Phone Cheryl Chacon MD Primary Care Provider Reason for Visit Reason Comments Genetic Evaluation Family history of breast and ovarian cancer Consultation (Routine) - Specialty Diagnoses / Procedures Referred By Contact Refer red To Contact Genetics / Hematology Diagnoses 25 YO sister recently diagnosed with both breat and ovarian cancer Cheryl Chacon MD [facility] Hem Onc 3k and Oncology Procedures consultation and treat [address] [place], [place] [address] [place] [phone] Phone: Fax: Referral ID Status Reason Start Date Expiration Date Visits V isits Requested Authorized [id number] 12/22/2015 12/21/2016 1 1 Encounter Details Date Type Department Care Team Description 02/11/2016 Office Visit Hematology and Andrés Family hi story of malignant neoplasm of breast; Oncology at [facility] Chika finnegan Family history of malignant neoplasm of ovary; [facility] story of malignant neoplasm of gastrointestinal tract [place], [place] HEMATOLOGY/ONCOL [address] OGY DEPT. [phone] [place] [address] Social History Tobacco Use Types Packs/Day Years Used Date Never Assessed Sex Assigned at Date Recorded Not on file documented as of this encounter Progress Notes Chika Ceja - 02/11/2016 9:00 AM EDT Ms. Anthony was seen by Chika Ceja MS, [facility] at the request of Cheryl Chacon MD [...] Paternal Aunt 60's Maternal ethnic background is Serbian, Indonesian, non-Episcopal. Paternal ethnic background is Nepali Hungarian, Kinyarwanda, non-Episcopal. Genetic risk assessment Mague and her sister [...] MRI directed biopsy capability such as the [facility] Radiology Department. Mague's health care providers may contact the [facility] Radiology Department at [phone] in order to schedule this study for [...] screening studies in addition to an annual REGISTERED PHYSICAL THERAPIST exam at this time. ?? Bilateral salpingo [...] tract documented in this encounter Care Teams Director Of Radio Services Relationship Specialty Start Date End Date Cheryl Chacon MD PCP - General Obstetrics and Gynecology 02/11/16 [address] [place] [address] documented as of this encounter
--- OUTSIDE RECORDS SUMMARY | 2021-11-12 00:43 | XMS_ITS | Encounter Summary ---
:1980 Author Organization [facility] Address [address] [place] [address] Care Team Providers Name Role Phone Unknown, Provider Primary Care Provider Encounter Details Date Type Department Care Team Description 01/30/2012 Results Only [facility] Jada Solitario MD Laboratory Services - [address] [facility] [address] [place] [phone] (Wo rk) Social History Tobacco Use Types [...] SANDIP BRIAN ? Accession #: ? [id number] : ? 1980 (Age: 31) ??F ?Collect [...] reviewed and electronically signed by: ? JG Reyes(ASCP) ? Report Date: ??02/07/2012 13:24 End of Report Specimen Performing Organization Address City/State/ZIP Code Phon e Number [facility] [address] [place] [address] SERVICES [facility] [address] [place] [address] documented in this encounter Visit Diagnoses Not on filedocumented in this encounter Care Teams Pulmonary Fellow Relationship Specialty Start Date End Date Unknown, Provider, PCP - General 05/18/10 01/24/16 documented as of this encounter
--- OUTSIDE RECORDS SUMMARY | 2021-11-12 00:43 | XMS_ITS | Clinical Summary ---
:1980 Author Organization [facility] [place] [address] Care Team Providers Name Role Phone Cheryl [...] Phone Addre ss Type Group [employer] [facility] [employer] [id number] 2013-Maryam [phone] [address] [employer] O[employer] [address] [place] [address] Care Teams Claim Inspector Relationship Specialty Start Date End Date Cheryl Chacon MD PCP - General Obstetrics and Gynecology 02/11/16 [address] [place], [place] [id number]
--- OUTSIDE RECORDS SUMMARY | 2021-11-12 00:43 | XMS_ITS | Encounter Summary ---
:1980 Author Organization [facility] Address [address] [place] [address] Care Team Providers Name Role Phone Unavailable Primary Care Provider Unavailable Encounter Details Date Type Department Care Team Description 01/19/2006 Results Only [facility] Shyanne Alvarenga [facility] [address] [place] [address] Social History Tobacco Use Types Packs/Day Years [...] SANDIP BRIAN ? Accession #: ? [id number] : ? 1980 (Age: 25) ??F ?Collect Date: ? 12/31 Location: ? [facility] ? Receive Date : ? 01/20/2006 Provider: ?SHYANNE CHANDLER M Copy to: ? Specimen/Source: ? ThinPrep Pap Test, Cervix/Endocervix, processed on APR ThinPrep Imaging System, with manual evaluation Last Menstrual Period: ? 11/28/05 Menstrual/ Status: ? Other: ? HPVA - HPV testing requested if ASC-US on the current ThinPrep Pap test. ? SPECIMEN ADEQUACY ? Satisfactory for Evaluation - transformation zone component present GENERAL CATEGORIZATION ? Negative for Intraepithelial Lesion or Malignan cy ? Document reviewed and electronically signed by: ? Shyanne Evans, [facility](ASCP) ? Report Date: ??01/25/2006 08:57 End of Report Specimen Performing Organization Address City/State/ZIP Code Phon e Number [facility] [address] [place] [address] SERVICES [facility] [address] [place] [address] documented in this encounter Visit Diagnoses Not on filedocumented in this encounter
--- OUTSIDE RECORDS SUMMARY | 2021-11-12 00:43 | XMS_ITS | Encounter Summary ---
:1980 Author Organization [facility] Address [address] [place] [address] Care Team Providers Name Role Phone Unavailable Primary Care Provider Unavailable Encounter Details Date Type Department Care Team Description 05/14/2010 Results Only [facility] Tawanna Palencia MD Laboratory Services - [address] [place] [address] [place] [address] Social History Tobacco Use Types Packs/Day [...] REPORT ? [facility] Reports generated via [employer] interface contain original data; ? LAB however they are lacking the format of the original report. ? Caution should be taken when reading/interpreting unformatted reports. ? Name: ? ROC, SANDIP ? Accession #: ? [id number] ? : ? 1980 (Age: 29) ??F ? Collec t Date: ? 05/14/2010 ? Location: ? [facility] ? R eceive Date: ? 05/14/2010 ? Provider: TAWANNA CARMEN MD ? Copy to: ? Final Pathologic Diagnosis: ? Endometrium, biopsy: ? - Disordered proliferative e ndometrium. ??See comment. ? Comment: ? Sports Team Manager sectio ns of this case have been [...] Organization Address City/State/ZIP Code Phon e Number [facility] [address] [place] [address] SERVICES [facility] [address] [place] [address] documented in this encounter Visit Diagnoses Not on filedocumented in this encounter
--- OUTSIDE RECORDS SUMMARY | 2021-11-12 00:43 | XMS_ITS | Encounter Summary ---
:1980 Author Organization [facility] Address [address] [place] [address] Care Team Providers Name Role Phone Unknown, Provider Primary Care Provider Encounter Details Date Type Department Care Team Description 01/20/2011 Results Only [facility] Emmy Solitario MD Laboratory Services - [address] [place] [address] [address] [place] [phone] (Wo rk) Social History Tobacco Use Types Packs/Day Years Used Date Never Assessed Sex Assigned at Date Recorded Not on file documented as of this encounter Plan of Treatment Not on filedocumented as of this encounter Procedures Procedure Name Priority Date/Time Associated Diagnosis Comme nts PAP TEST- RESULT Routine 01/20/2011 0:00 EDT Resu lts for this ONLY procedure are i n the results section. documented in this encounter Results PAP TEST- RESULT ONLY (01/20/2011 0:00 EDT) Pathology Report: CYTOPATHOLOGY REPORT ? [facility] ? LAB Reports generated via electr onic interface contain original data; ? however they are lacking the format of the original report. ? Caution should be taken when reading/interpreting unformatted reports. ? Name: ? ROC SANDIP ? Accession #: ? [id number] ? : ? 1980 (Age: 30) ??F ?Collect Date: ? 01/20/2011 ? Location: ? [facility] ? Receive Date: ? 01/21/2011 ? Provider: ?EMMYN B T HOMAS MD ? Copy to: ? Specimen/Source: ? Pap Test, Cervix/Endocervix, ThinPrep Imaging System ? with manual evaluation ? Last Menstrual Period: ? 9/8/11 ? SPECIMEN ADEQUACY ? Satisfactory for Eval uation ? - transformation zone compon ent present ? GENERAL CATEGORIZATION ? Negative for Intraepi thelial Lesion or Malignancy ? Document reviewed and electr onically signed by: ? Sarika Coreas, [place](ASCP) ? Report Date: ??01/27/ 2011 10:17 ? End of Report ? Specimen Performing Organization Address City/State/ZIP Code Phon e Number [facility] [address] [place] [address] SERVICES [facility] [address] [place] [address] documented in this encounter Visit Diagnoses Not on filedocumented in this encounter Care Teams Bevel Operator Relationship Specialty Start Date End Date Unknown, Provider, PCP - General 05/18/10 01/24/16 documented as of this encounter
--- OUTSIDE RECORDS SUMMARY | 2021-11-12 00:43 | XMS_ITS | Encounter Summary ---
:1980 Author Organization [facility] Address [address] [place] [address] Care Team Providers Name Role Phone Unknown, Provider Primary Care Provider Encounter Details Date Type Department Care Team Description 01/19/2016 Hospital Encounter [facility] [place] Unknown, Provider, [facility] [address] [place] [address] [place] [address] (Work) [phone] Social History Tobacco Use Types Packs/Day Years Used Date Never Assessed Sex Assigned at Date Recorded Not on file documented as of this encounter Discharge Disposition Disposition Code Departure Means Destination Home or Self Senior Living documented in this encounter Plan of Treatment Not on filedocumented as of this encounter Visit Diagnoses Not on filedocumented in this encounter Care Teams Pinball Machine Repairer Relationship Specialty Start Date End Date Unknown, Provider, PCP - General 05/18/10 01/24/16 documented as of this encounter
--- OUTSIDE RECORDS SUMMARY | 2021-11-12 00:43 | XMS_ITS | Clinical Summary ---
:[address] [facility] Address [address] [place] [address] Care Team Providers Name Role Phone None, Provider Primary Care Provider Unavailable Social History Tobacco Use Types Packs/Day Years Used Date Never Assessed Sex Assigned at Date Recorded Not on file Plan of Treatment Not on file Care Teams Suction Plate Roller Hand Relationship Specialty Start Date End Date None, Provider PCP - General 05/12/17
--- OUTSIDE RECORDS SUMMARY | 2021-11-12 00:43 | XMS_ITS | Encounter Summary ---
:1980 Author Organization [facility] Address [address] [place] [address] Care Team Providers Name Role Phone None, Provider Primary Care Provider Unavailable Encounter Details Date Type Department Care Team Description 08/10/2020 Lab Requisition [facility] Nikole Sheikh E ncounter for other Pathology & ASSEMBLER SEMICONDUCTOR general examination Laboratory Medicine [address] [place], [place] [address] [facility] [address] [place] [address] Social History Tobacco Use Types [...] 9:00 EDT) Human Papillomavirus NegativeComment: No Negative [facility] (HPV) Detection-High E6 or E7 mRNA is CENTER LABORATOR Y Types detected from HPV SERVICES types 16,18,31,33,35,39,45 ,51,52,56,58,59,66, and 68 by child and adolescent therapist mediated amplification. Specimen Pap Test - Cervix and/or Endocervix Performing Organization Address City/State/ZIP Code Phon e Number [facility] [address] [place] [address] SERVICES PAP TEST (08/07/2020 9:00 EDT) Specimens A. Cervix and/or [facility] Endocervix , ThinPrep CENTER Imaging System with LABORATORY Manual Evaluation SERVICES Specimen Adequacy Satisfactory for [facility] Evaluation - CENTER transformation zone LABORATORY component present SERVICES General Negative for [facility] intraepithelial [place] lesion or malignancy LABORATORY SERVICES Attestation . [facility] Electronically CENTER signed by SOHAIL Olguin CT(ASCP) o n SERVICES 08/14/2020 at 16 13 Clinical History See below [facility] SERVICES HPV The result for the Human Pap illomavirus (HPV) Detection-High Risk Types is Negative. No E6 or E7 mRNA is detected from HPV types 16,18,31,33,35,39,45,51,52,56,58,59,66, and 68 by child and adolescent therapist mediated [facility] amplification.Testing was pe rformed on specimen [id number] and was resulted on 08/14/2020 1607 EDT by JEFFRY, LAB INSTRUMENT RESULTS IN [facility] SERVICES Performing Lab [facility] SERVICES Scanned Images [facility] SERVICES Specimen Pap Test - Cervix and/or Endocervix Performing Organization Address City/State/ZIP Code Phon e Number [facility] [address] [place] [address] SERVICES documented in this encounter Visit Diagnoses Diagnosis Encounter for other general examination documented in this encounter Care Teams Technical Systems Architect Relationship Specialty Start Date End Date None, Provider PCP - General 05/12/17 documented as of this encounter
--- OUTSIDE RECORDS SUMMARY | 2021-11-12 00:43 | XMS_ITS | Encounter Summary ---
:1980 Author Organization [facility] Address [address] [place] [address] Care Team Providers Name Role Phone Unavailable Primary Care Provider Unavailable Encounter Details Date Type Department Care Team Description 01/18/2010 Results Only [facility] [place] Marlyn Acevedo, [facility] - [place], [place] [address] [facility] [id number] [place] [address] [id number] [phone] Social History Tobacco Use Types Packs/Day Years [...] EN ? LAB Reports generated via electr [employer] interface contain original data; ? however they are lacking the format of the original report. ? Caution should be taken when reading/interpreting unformatted reports. ? Name: ? SANDIP BRIAN ? Accession #: ? [id number] ? : ? 1980 (Age: 29) ??F [...] Organization Address City/State/ZIP Code Phon e Number [facility] [address] [place] [address] SERVICES [facility] [address] [place] [address] documented in this encounter Visit Diagnoses Not on filedocumented in this encounter
--- OUTSIDE RECORDS SUMMARY | 2021-11-12 00:43 | XMS_ITS | Encounter Summary ---
:1980 Author Organization [facility] Address [address] [place] [address] Care Team Providers Name Role Phone None, Provider Primary Care Provider Unavailable Encounter Details Date Type Department Care Team Description 03/06/2018 Results Only [facility]- Gabe Greer, [facility] [phone] [facility] [place] [address] (Wo rk) Social History Tobacco Use Types Packs/Day Years Used Date Never Assessed Sex Assigned at Date Recorded Not on file documented as of this encounter Plan of Treatment Not on filedocumented as of this encounter Procedures Procedure Name Priority Date/Time Associated Diagnosis Comme nts PAP TEST- RESULT Routine 03/06/2018 0:00 EST Resu lts for this ONLY procedure are i n the results section. documented in this encounter Results PAP TEST- RESULT ONLY (03/06/2018 0:00 EST) Pathology Report: CYTOPATHOLOGY REPORT [facility] Reports generated via electronic interface contain dilcia ginal data; SERVICES however they are lacking the format of the original re port. Caution should be taken when reading/interpreting unfo rmatted reports. Name: ? SANDIP BRIAN ? Accession #: ? [id number] ? : ? 1980 (Age: [age]) ??F ?Collect Date: ? 03/06/2018 ? Location: ? [facility] ? Receive Date: ? 03/07/20 18 ? Provider: GABE MCPHERSON SADDLE MECHANIC Copy to: ? Final Report SPECIMEN ADEQUACY ? Satisfactory for Evaluation - transformation zone component present GENERAL CATEGORIZATION ? Negative for Intraepithelial Lesion or Malignan cy ?? Treatment History: Ablation: EM 05/18 Specimen/Source: ??Pap Test, Cervix, ThinPrep Imaging System with manual evaluation Document reviewed and electronically signed by: ? Ana Sepulveda, CT(ASCP) ? Report ??Date: 03/13/2018 16:13 HPV with Pap Test ? Date Ordered: ? 03/13/2018 ? Status: ?? Signed Out ?Date Complete: ? 03/14/2018 ? By: ??S ystem Interface ? Date Reported: ? 03/14/2018 ? Interpretation RESULT: Negative for HPV. No E6 or E7 mRNA is detected from HPV types 16,18,31,3 3,35, 39,45,51,52,56,58,59,66, and 68 by research animal attendant media shannon amplification. Comments Document reviewed and electronically signed by: ? System Interface ? Report date: 03/14/2018 By the signature above, the attending physician certif ies that he/she has personally conducted a gross and/or microscopic examin ation of the described specimens and rendered or confirmed the above diagnosi s. End of Report Specimen Performing Organization Address City/State/ZIP Code Phon e Number [facility] [address] [place] [address] SERVICES documented in this encounter Visit Diagnoses Not on filedocumented in this encounter Care Teams Automatic Beading Lathe Operator Relationship Specialty Start Date End Date None, Provider PCP - General 05/12/17 documented as of this encounter
--- OUTSIDE RECORDS SUMMARY | 2021-11-12 00:43 | XMS_ITS | Encounter Summary ---
:1980 Author Organization [facility] Address [address] [place] [address] Care Team Providers Name Role Phone Unavailable Primary Care Provider Unavailable Encounter Details Date Type Department Care Team Description 01/22/2007 Results Only [facility] - Dexter Poe CNM conversion [address] [place] [address] [place], [place] [id number] [phone] Social History Tobacco Use Types Packs/Day Years Used Date Never Assessed Sex Assigned at Date Recorded Not on file documented as of this encounter Plan of Treatment Not on filedocumented as of this encounter Procedures Procedure Name Priority Date/Time Associated Diagnosis Comme nts CYTOPATHOLOGY Routine 01/22/2007 0:00 EDT Results for this procedure are i n the results section . documented in this encounter Results CYTOPATHOLOGY (01/22/2007 0:00 EDT) Pathology Report: CYTOPATHOLOGY REPORT [facility] Reports generated via electronic interface contain dilcia ginal data; however they are lacking the format of the original re port. Caution should be taken when reading/interpreting unfo rmatted reports. Name: ? SANDIP BRIAN ? Accession #: ? [id number] : ? 1980 (Age: 26) ??F ?Collect Date: ? 12/31 Location: ? [facility] ? Receive Date : ? 01/22/2007 Provider: ?DEXTER KAYE CNM Copy to: ? Specimen/Source: ? ThinPrep Pap Test, Cervix/Endocervix, processed on [employer] ThinPrep Imaging System, with manual evaluation Last Menstrual Period: ? 12/29/06 Hormonal/Contraceptive Status: ? Oral contraceptives Other: ? HPVA - HPV testing requested if ASC-US on the current ThinPrep Pap test. ? SPECIMEN ADEQUACY ? Satisfactory for Evaluation - transformation zone component present GENERAL CATEGORIZATION ? Negative for Intraepithelial Lesion or Malignan cy ? Document reviewed and electronically signed by: ? JG Shaikh(ASCP) ? Report Date: ??01/26/2007 17:45 End of Report Specimen Performing Organization Address City/State/ZIP Code Phon e Number [facility] [address] [place] [address] SERVICES [facility] [address] [place] [address] documented in this encounter Visit Diagnoses Not on filedocumented in this encounter
== END ==
PROVIDERS: Visit Provider Nurse Practitioner Family
DX: Z12.31 Encounter for screening mammogram for malignant neoplasm of breast (principal); R92.8 Other abnormal and inconclusive findings on diagnostic imaging of breast; N64.59 Other signs and symptoms in breast
CPT/HCPCS: 76642; 77063; 77067

== ENCOUNTER → 2022-02-15 02:48 | Outpatient (CLI) | payer BC, SELFPAY ==
--- NOTE | 2022-02-15 06:45 | DI.MAMMO_ITS ---
Exam(s) MAMMO DIAGNOSTIC UNI EXAM: MAMMO DIAGNOSTIC UNI CLINICAL HISTORY: 3 mo f/u,F/U ABNL, INCONCLUSIVE MAMMO, R92.8. TECHNIQUE: Craniocaudal and mediolateral oblique Full Field Digital Mammography views of the right b reast with Computer Aided Diagnosis followed by Tomosynthesis. COMPARISON: Comparison is made with prior examinations. FINDINGS: Mammography/Tomosynthesis: Masses/Architectural Distortion: None seen. Microcalcifictions: No suspicious pleomorphic-type are seen. Skin Thickening/Nipple Retraction: None. IMPRESSION: 1. No evidence of malignancy is noted. 2. A six-month follow-up right mammogram is recommended for re-evaluation. 3. The findings were discussed with the patient on the date of the examination. BI-RADS Category 3 - 6 month - Probably Benign Finding: Recommend follow-up imaging in 6 months Breast Density - Category B - Scattered areas of fibroglandular density Breast density Category C or D implies that the patient has dense breast tissue. Dense breast tissue can make it harder to find cancer on a mammogram. Dense breast tissue is also associated with an incr eased risk of breast cancer. This information about the result of the mammogram report was provided to the patient to raise their awareness. Use this report when you speak with the patient about their risks for breast cancer, which includes their family history. At that time, you may recommend additional screening tests (Ultrasoun d or MRI) as these tests may add significant information. A negative radiographic report should not delay biopsy if a dominant or clinically suspicious mass is present. Up to ten percent of cancers are not identified on mammography. A negative report may reinforce clinical impression. Adenosis and dense breasts may obscure an underlying neoplasm. False positive reports average 6 to 10%. Patient will receive a letter notifying them of these results.
== END ==
PROVIDERS: Visit Provider Nurse Practitioner Family
DX: R92.8 Other abnormal and inconclusive findings on diagnostic imaging of breast (principal); N64.59 Other signs and symptoms in breast
CPT/HCPCS: 77061; 77065; G0279

== ENCOUNTER 2022-08-25 01:10 | Outpatient (CLI) | payer BC, SELFPAY ==
--- NOTE | 2022-08-25 09:44 | DI.MAMMO_ITS ---
Exam(s) MAMMO DIAGNOSTIC UNI EXAM: MAMMO DIAGNOSTIC UNI CLINICAL HISTORY: 6 month f/u,F/U MAMMO, R92.8,H/O INCREASED DENSITY. TECHNIQUE: Craniocaudal and mediolateral oblique Full Field Digital Mammography views of the right b reast with Computer Aided Diagnosis followed by Tomosynthesis. COMPARISON: Comparison is made with prior examinations. FINDINGS: Mammography/Tomosynthesis: Masses/Architectural Distortion: None seen. Microcalcifictions: No suspicious pleomorphic-type are seen. Skin Thickening/Nipple Retraction: None. IMPRESSION: 1. No evidence of malignancy is noted. 2. Unless there is more urgent need, follow-up screening mammography is recommended, as per [employer] guidelines. 3. The findings were discussed with the patient on the date of the examination. BI-RADS Category 1 - Negative Breast Density - Category B - Scattered areas of fibroglandular density Breast density Category C or D implies that the patient has dense breast tissue. Dense breast tissue can make it harder to find cancer on a mammogram. Dense breast tissue is also associated with an incr eased risk of breast cancer. This information about the result of the mammogram report was provided to the patient to raise their awareness. Use this report when you speak with the patient about their risks for breast cancer, which includes their family history. At that time, you may recommend additional screening tests (Ultrasoun d or MRI) as these tests may add significant information. A negative radiographic report should not delay biopsy if a dominant or clinically suspicious mass is present. Up to ten percent of cancers are not identified on mammography. A negative report may reinforce clinical impression. Adenosis and dense breasts may obscure an underlying neoplasm. False positive reports average 6 to 10%. Patient will receive a letter notifying them of these results.
== END 2022-08-25 01:30 ==
PROVIDERS: Visit Provider Nurse Practitioner Women's Health
DX: R92.8 Other abnormal and inconclusive findings on diagnostic imaging of breast (principal)
CPT/HCPCS: 77061; 77065; G0279

== ENCOUNTER → 2023-08-28 03:10 | Outpatient (CLI) | payer BC, SELFPAY ==
--- NOTE | 2023-08-28 11:45 | DI.MAMMO_ITS ---
Exam(s) MAMMO SCREENING EXAM: MAMMO SCREENING CLINICAL HISTORY: screening. TECHNIQUE: Bilateral full field digital CC and MLO mammographic images were obtained with 3D tomosyn thesis and utilizing computer aided detection (CAD). COMPARISON: Prior mammograms were reviewed. Prior ultrasound reviewed. FINDINGS: There are no new significant left breast findings. In the right breast the previously described asymmetric area is again noted. However, there is now a n increasing group of microcalcifications in this region which will require 2D spot Mag views Previously described asymmetric density in this region is unchanged. There is no significant architectural distortion nor skin thickening-retraction. IMPRESSION: 1. No radiographic evidence of malignancy in left breast. 2. New right breast microcalcification group. Spot Mag 2D views are recommended. BI-RADS Category 0 - Assessment Incomplete: Need additional imaging evaluation Breast Density - Category B - Scattered areas of fibroglandular density Breast density Category C or D implies that the patient has dense breast tissue. Dense breast tissue can make it harder to find cancer on a mammogram. Dense breast tissue is also associated with an incr eased risk of breast cancer. This information about the result of the mammogram report was provided to the patient to raise their awareness. Use this report when you speak with the patient about their risks for breast cancer, which includes their family history. At that time, you may recommend additional screening tests (Ultrasoun d or MRI) as these tests may add significant information. A negative radiographic report should not delay biopsy if a dominant or clinically suspicious mass is present. Up to ten percent of cancers are not identified on mammography. A negative report may reinforce clinical impression. Adenosis and dense breasts may obscure an underlying neoplasm. False positive reports average 6 to 10%. Patient will receive a letter notifying them of these results.
== END ==
PROVIDERS: Visit Provider Nurse Practitioner Women's Health
DX: Z12.31 Encounter for screening mammogram for malignant neoplasm of breast (principal)
CPT/HCPCS: 77063; 77067

== ENCOUNTER → 2023-09-01 02:28 | Outpatient (CLI) | payer BC, SELFPAY ==
--- NOTE | 2023-09-01 | DI.US_ITS ---
Exam(s) MG MAMMO SCREEN CALL BACK UNI US BREAST RT COMPLETE EXAM: MG MAMMO SCREEN CALL BACK UNI-RIGHT AND COMPLETE RIGHT BREAST ULTRASOUND CLINICAL HISTORY: RT BREAST MICROCALCIFICATION GROUP R92.8 ABNL MAMMO. TECHNIQUE: Unilateral 2D spot mammographic images obtained microcalcifications. Complete RIGHT breast Ultrasound was also performed, including all 4 quadrants, the retroareolar ivette on, and the ipsilateral axilla. COMPARISON: Prior mammograms were reviewed. This study is for follow-up of a microcalcification g roup in the upper outer quadrant of the right breast. FINDINGS: DIAGNOSTIC MAMMOGRAM: Multiple 2D spot Mag views reveal relative stability of the faint microcalcification group and no renata e increase in amount of pleomorphic calcifications.. We proceeded with ultrasound to determine if these calcifications may be associated with a discernibl e nodule. COMPLETE RIGHT BREAST ULTRASOUND: Ultrasound performed today reveals no evidence of solid or significant cystic lesions in all 4 quadra nts. There is no nodule in the right upper quadrant.. Scanning of the ipsilateral axilla reveals no significant adenopathy. IMPRESSION: 1. Persistent microcalcification group in the upper outer quadrant of the right breast, not associat ed with a nodule but still maintains benign appearance at this time Appropriate follow-up is repeat right breast mammogram with 2D Mag views of the micro calcific 6 mon ths. The patient was informed of these findings and recommendations by myself prior to leaving the departm ent today. BI-RADS Category 3 - 6 month - Probably Benign Finding: Recommend follow-up mammography in 6 months Breast Density - Category C - Heterogeneously dense Breast density Category C or D implies that the patient has dense breast tissue. Dense breast tissue can make it harder to find cancer on a mammogram. Dense breast tissue is also associated with an incr eased risk of breast cancer. This information about the result of the mammogram report was provided to the patient to raise their awareness. Use this report when you speak with the patient about their risks for breast cancer, which includes their family history. At that time, you may recommend additional screening tests (Ultrasoun d or MRI) as these tests may add significant information. A negative radiographic report should not delay biopsy if a dominant or clinically suspicious mass is present. Up to ten percent of cancers are not identified on mammography. A negative report may reinforce clinical impression. Adenosis and dense breasts may obscure an underlying neoplasm. False positive reports average 6 to 10%. Patient will receive a letter notifying them of these results.
== END ==
PROVIDERS: Visit Provider Nurse Practitioner Women's Health
DX: Z12.31 Encounter for screening mammogram for malignant neoplasm of breast (principal); R92.8 Other abnormal and inconclusive findings on diagnostic imaging of breast
CPT/HCPCS: 76642; 77063; 77067

== ENCOUNTER 2024-03-05 01:11 | Outpatient (CLI) | payer BC, SELFPAY ==
--- NOTE | 2024-03-05 09:25 | DI.MAMMO_ITS ---
Exam(s) MAMMO DIAGNOSTIC UNI EXAM: MAMMO DIAGNOSTIC UNI CLINICAL HISTORY: 6 mo f/u R breast persistent microcalcification,r92.8. TECHNIQUE: Craniocaudal and mediolateral oblique Full Field Digital Mammography views of the right b reast with Computer Aided Diagnosis followed by Tomosynthesis. 2D Mag views were also obtained. COMPARISON: Comparison is made with prior examinations. FINDINGS: Mammography/Tomosynthesis: Masses/Architectural Distortion: None seen. Microcalcifictions: No suspicious pleomorphic-type are seen. The cluster of calcifications in the rig ht breast are stable. Skin Thickening/Nipple Retraction: None. IMPRESSION: 1. No evidence of malignancy is noted. 2. Unless there is more urgent need, follow-up screening mammography is recommended, as per [employer] guidelines. 3. The findings were discussed with the patient on the date of the examination. BI-RADS Category 2 - Benign Findings Breast Density - Category B - Scattered areas of fibroglandular density Breast density Category C or D implies that the patient has dense breast tissue. Dense breast tissue can make it harder to find cancer on a mammogram. Dense breast tissue is also associated with an incr eased risk of breast cancer. This information about the result of the mammogram report was provided to the patient to raise their awareness. Use this report when you speak with the patient about their risks for breast cancer, which includes their family history. At that time, you may recommend additional screening tests (Ultrasoun d or MRI) as these tests may add significant information. A negative radiographic report should not delay biopsy if a dominant or clinically suspicious mass is present. Up to ten percent of cancers are not identified on mammography. A negative report may reinforce clinical impression. Adenosis and dense breasts may obscure an underlying neoplasm. False positive reports average 6 to 10%. Patient will receive a letter notifying them of these results.
== END 2024-03-05 01:31 ==
PROVIDERS: Visit Provider Nurse Practitioner Women's Health
DX: R92.8 Other abnormal and inconclusive findings on diagnostic imaging of breast (principal); Z12.31 Encounter for screening mammogram for malignant neoplasm of breast
CPT/HCPCS: 77061; 77065; G0279

== ENCOUNTER 2024-03-20 15:03 | Outpatient (REF) | payer BC, SELFPAY ==
--- NOTE | 2024-03-20 15:00 | PAPFT_PTH ---
PATIENT: Mague Anthony LOC: [facility] U#:[id number] AGE/SX: 43/F ROOM: RE03/20/[address]: Lisbet Granados NP : 1980 BED: DIS: 03/20/2024 SPEC #: [id number] RECD: 03/20/24 17:55 STATUS: LANG REFoster #: [id number] SHEILA: 03/20/24 15:[address]: Darwin DAWSON,Lisbet DEPT: [facility] Cytology RECD BY: Gladis Maria ENTERED: 03/20/24 17:55 SP TYPE: PAPFT OT DR: Unknown,Unknown Tissues: 1 - CX/ENDOCX FOR PAP SMEARS Procedures: PAP THIN PREP/UVM Screening HPV DNA PROBE Comments: [id number] (HPV 16 & 18/45)
== END 2024-03-20 15:04 | disposition home or self-care (01) ==
LOC: LBN 15:03
PROVIDERS: Visit Provider Nurse Practitioner Women's Health
DX: Z01.419 Encounter for gynecological examination (general) (routine) without abnormal findings (principal); Z12.4 Encounter for screening for malignant neoplasm of cervix
CPT/HCPCS: 88142; 87624

== ENCOUNTER → 2025-04-14 00:13 | Outpatient (CLI) | payer BC, SELFPAY ==
--- NOTE | 2025-04-14 07:15 | DI.MAMMO_ITS ---
Exam(s) MAMMO SCREENING EXAM: MAMMO SCREENING CLINICAL HISTORY: screening,z12.39 TECHNIQUE: Bilateral full field digital CC and MLO mammographic images were obtained with 3D tomosynthesis and utilizing computer aided detection (CAD). COMPARISON: Comparison is made with prior examinations. FINDINGS: Masses/Architectural Distortion: No suspicious masses or areas of architectural distortion are present. Microcalcifications: No suspicious pleomorphic-type are seen. Skin Thickening/Nipple Retraction: None. IMPRESSION: 1. No significant interval change with no specific features of malignancy noted. 2. Unless there is more urgent need, screening mammography is recommended, as per [employer] guidelines. BI-RADS Category 1 - Negative Breast Density - Category B - There are scattered areas of fibroglandular density. Breast density Category C or D implies that the patient has dense breast tissue. Dense breast tissue can make it harder to find cancer on a mammogram. Dense breast tissue is also associated with an increased risk of breast cancer. This information about the result of the mammogram report was provided to the patient to raise their awareness. Use this report when you speak with the patient about their risks for breast cancer, which includes their family history. At that time, you may recommend additional screening tests (Ultrasound or MRI) as these tests may add significant information. A negative radiographic report should not delay biopsy if a dominant or clinically suspicious mass is present. Up to ten percent of cancers are not identified on mammography. A negative report may reinforce clinical impression. Adenosis and dense breasts may obscure an underlying neoplasm. False positive reports average 6 to 10%. Patient will receive a letter notifying them of these results.
== END ==
LOC: DI 00:14
PROVIDERS: Visit Provider Nurse Practitioner Women's Health
DX: Z12.31 Encounter for screening mammogram for malignant neoplasm of breast (principal)
CPT/HCPCS: 77063; 77067